=== PATIENT | female | born 2005 | race Hispanic/Latino ===

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

== ENCOUNTER 2023-10-24 23:55 | Emergency (ER) | payer OTHER, SELFPAY ==
[2023-10-25 01:02] LABS: SARS-CoV-2 NAA Rapid Test Not Detected (NotDetected)
== END 2023-10-25 02:31 | disposition home or self-care (01) ==
LOC: ERS 23:55
DX: B34.9 Viral infection, unspecified (principal)
CPT/HCPCS: 87081; 87430

== ENCOUNTER 2024-04-02 22:26 | Emergency (ER) | payer SELFPAY ==
[2024-04-02 23:55] LABS: Influenza A by NAA Not Detected (NotDetected); Influenza B by NAA Not Detected (NotDetected); SARS-CoV-2 NAA Rapid Test Not Detected (NotDetected)
== END 2024-04-03 00:38 | disposition home or self-care (01) ==
LOC: ERS 22:26
DX: J03.90 Acute tonsillitis, unspecified (principal); F17.290 Nicotine dependence, other tobacco product, uncomplicated
CPT/HCPCS: 87081; 87430; 99283

== ENCOUNTER 2024-08-03 13:26 | Emergency (ER) | payer OTHER ==
[2024-08-03] MEDS ORDERED: Oxymetazoline HCl 0.05% (30 ML BOT) ONE (15:41)
== END 2024-08-03 15:49 | disposition home or self-care (01) ==
LOC: ERS 13:26
DX: L25.9 Unspecified contact dermatitis, unspecified cause (principal); J30.9 Allergic rhinitis, unspecified
CPT/HCPCS: 99282

== ENCOUNTER 2025-07-10 12:25 | Emergency (ER) | payer OTHER ==
[2025-07-10 14:42] LABS: Pregnancy Test - Urine (BHCG) Negative (Negative); Pregu Control Background? CLEAR/WHITE (CLR/WHITE); Pregu Control Bar Appear? YES (CONTROL BAR)
[2025-07-10 14:49] LABS: Bacteria/HPF None Seen HPF (None Seen); CAUTI Indications for Culture Dysuria,urgency,freq; Glucose, Urine (Dipstick) Normal (Negative); Leukocyte 250 Leu/uL (Negative); Protein, Urine (Dipstick) 20 mg/dL (Neg-Trace); RBC/HPF 0-3 HPF (0-3); Specific Gravity, Urine 1.035 (1.002-1.036); WBC/HPF 21-50 HPF (0-3)
[2025-07-10 14:52] LABS: Urine Culture Reflex Yes Yes
== END 2025-07-10 15:18 | disposition home or self-care (01) ==
LOC: ERS 12:25
DX: R11.0 Nausea (principal)
CPT/HCPCS: 81001; 81025; 87077; 87086; 87186; 99283; Q0162

== ENCOUNTER 2025-09-05 07:58 | Emergency (ER) | payer OTHER ==
[2025-09-05 08:18] LABS: Pregnancy Test - Urine (BHCG) POSITIVE (Negative); Pregu Control Background? CLEAR/WHITE (CLR/WHITE); Pregu Control Bar Appear? YES (CONTROL BAR)
[2025-09-05 08:22] LABS: Bacteria/HPF None Seen HPF (None Seen); CAUTI Indications for Culture Pregnancy; Glucose, Urine (Dipstick) Normal (Negative); Leukocyte Negative Leu/uL (Negative); Protein, Urine (Dipstick) 30 mg/dL (Neg-Trace); RBC/HPF 0-3 HPF (0-3); Specific Gravity, Urine 1.031 (1.002-1.036); WBC/HPF 0-3 HPF (0-3)
[2025-09-05 08:35] LABS: Urine Culture Reflex Yes Yes
[2025-09-05] MEDS ORDERED: Acetaminophen 500 MG TAB ONE (08:55)
[2025-09-05 09:11] LABS: #Basophils 0.03 10x3/uL (0.0-0.2); #Eosinophils 0.10 10x3/uL (0.0-0.7); #Monocytes 0.44 10x3/uL (0.11-0.59); #Neutrophils 6.60 10x3/uL (1.40-6.50); %Basophils 0.3 % (0.0-1.0); %Eosinophils 1.1 % (0.0-10.0); %Lymphocytes 20.7 % (21.0-51.0); %Monocytes 4.8 % (0.0-10.0); %Neutrophils 72.6 % (42.0-75.0); Hematocrit 46.7 % (36.0-47.0); Hemoglobin 15.4 g/dL (12.0-16.0); Mean Corpuscular Hemoglobin 27.3 pg (27.0-31.0); Mean Corpuscular Volume 82.7 fL (78.0-98.0); Platelet Count 269 10x3/uL (130-400); Red Blood Cell (RBC) Count 5.65 mill/uL (4.20-5.40); White Blood Cell (WBC) Count 9.11 10x3/uL (4.8-10.8)
[2025-09-05 09:28] LABS: ALT (SGPT) 18 U/L (Less than 34); AST (SGOT) 27 U/L (11-34); Albumin 4.7 g/dL (3.1-4.5); Alkaline Phosphatase 82 U/L (40-110); Anion Gap 15 mmol/L (10-20); BUN (Urea Nitrogen) 9 mg/dL (7.0-18.7); Bilirubin, Total 0.5 mg/dL (0.3-1.2); Calc. Creatinine Clearance 0 mL/min (70-130); Calcium 9.6 mg/dL (7.8-10.44); Carbon Dioxide 25 mmol/L (22-29); Chloride 105 mmol/L (98-107); Globulin 3.4 g/dL (2.4-3.5); Glucose 99 mg/dL (70-105); Potassium 3.9 mmol/L (3.5-5.1); Sodium 141 mmol/L (136-145)
== END 2025-09-05 10:56 | disposition home or self-care (01) ==
LOC: ERS 07:58
DX: O99.891 Other specified diseases and conditions complicating pregnancy (principal); R10.31 Right lower quadrant pain; R10.32 Left lower quadrant pain; Z3A.01 Less than 8 weeks gestation of pregnancy
CPT/HCPCS: 76801; 76817; 80053; 81001; 81025; 84702; 85025; 87086